=== PATIENT | female | born 1970 | race Caucasian/White ===

== ENCOUNTER 2019-06-23 05:42 | Inpatient (IN) | payer OTHER ==
[2019-06-23] MEDS: DEXAMETHASONE 1 MG TAB PO (06:22)
[2019-06-23] MEDS: GABAPENTIN 300 MG CAP PO ×2 (06:22→20:54)
[2019-06-23] MEDS ORDERED: BUPIVACAINE 0.5% (SDV) 30 ML, morphine SULFATE (PF) 8 MG, EPINEPHrine 0.3 MG, KETOROLAC... IRR (06:30)
[2019-06-23] MEDS ORDERED: CA CHLORIDE (GM) 10% 10 ML INJ (06:38)
[2019-06-23] MEDS: POLYMYXIN/BACITRACIN 1L IRRIG (06:38)
[2019-06-23] MEDS ORDERED: THROMBIN 5000 UNIT (RECOTHROM) VIAL (06:38)
[2019-06-23] MEDS ORDERED: GLYCOPYRROLATE 0.4 MG INJ (06:44)
[2019-06-23] MEDS ORDERED: CEFAZOLIN 1 GM INJ (06:44)
[2019-06-23] MEDS ORDERED: NEOSTIGMINE 3 MG/3 ML SYRINGE (06:44)
[2019-06-23] MEDS ORDERED: PROPOFOL 20 ML (06:44)
[2019-06-23] MEDS ORDERED: ROCURONIUM 50 MG INJ (06:44)
[2019-06-23] MEDS ORDERED: DEXAMETHASONE 4 MG/ML 5 ML INJ (06:44)
[2019-06-23] MEDS ORDERED: MIDAZOLAM 1 MG/ML 2 ML INJ (06:44)
[2019-06-23] MEDS ORDERED: ONDANSETRON 4 MG INJ (06:44)
[2019-06-23] MEDS ORDERED: FENTAnyl 50 MCG/ML VIAL (06:44)
[2019-06-23] MEDS ORDERED: morphine SULFATE/PF (10 MG/10 ML) INJ (06:46)
[2019-06-23] MEDS ORDERED: ALBUTEROL 0.083% (NEB) 2.5 MG/3 ML AMP HHN (07:00)
[2019-06-23] MEDS ORDERED: LABETALOL HCL 20MG INJ IV (07:00)
[2019-06-23] MEDS ORDERED: HYDROmorphONE 0.5 MG/0.5 ML SYG IV (07:00)
[2019-06-23] MEDS ORDERED: FENTAnyl 50 MCG/ML VIAL IV ×2 (07:00)
[2019-06-23] MEDS ORDERED: ONDANSETRON 4 MG INJ IV ×2 (07:00→09:00)
[2019-06-23] MEDS ORDERED: DIPHENHYDRAMINE 50 MG INJ IV ×3 (07:00→09:00)
[2019-06-23] MEDS ORDERED: NALOXONE (0.4 MG/ML) INJ IV (07:00)
[2019-06-23] MEDS ORDERED: HYDROmorphONE 1 MG/5 ML IV SYRINGE IV (07:00)
[2019-06-23] MEDS ORDERED: NALBUPHINE HCL (10 MG/1 ML) INJ IV (07:00)
[2019-06-23] MEDS ORDERED: IPRATROPIUM (NEB) 0.5 MG/2.5 ML AMP HHN (07:00)
[2019-06-23] MEDS ORDERED: TRIMETHOBENZAMIDE 100 MG/ML VIAL IM ×2 (07:00)
[2019-06-23] MEDS ORDERED: hydrALAzine 20 MG INJ IV (07:00)
[2019-06-23] MEDS ORDERED: TRANEXAMIC ACID 1GM/100ML(PMX) 100 ML (07:05)
[2019-06-23] MEDS ORDERED: SUGAMMADEX SODIUM 200 MG/2 ML VIAL IV (08:45)
[2019-06-23] MEDS ORDERED: ZOLPIDEM 5 MG TAB PO (09:00)
[2019-06-23] MEDS ORDERED: MAGNESIUM HYDROXIDE 30ML CUP PO (09:00)
[2019-06-23] MEDS ORDERED: NACL 0.9% 3 ML SYG IV (09:00)
[2019-06-23] MEDS: ONDANSETRON 4 MG INJ IV (09:15)
[2019-06-23] MEDS: HYDROmorphONE 1 MG/5 ML IV SYRINGE IV ×3 (09:15→09:33)
[2019-06-23] MEDS: MIDAZOLAM 1 MG/ML 2 ML INJ IV (09:22)
[2019-06-23] MEDS: FENTAnyl 50 MCG/ML VIAL IV ×2 (09:29→13:03)
[2019-06-23 09:33] LABS: ADD MAN DIFF? NO
[2019-06-23 09:34] LABS: WHITE BLOOD COUNT 9.2 10^3/ul (4.8-10.8)
[2019-06-23 09:34] LABS: BASOPHILS % 0.2 % (0.0-2.0); EOSINOPHILS % 0.2 % (0.0-7.0); HEMATOCRIT 34.7 % (37.0-47.0); HEMOGLOBIN 11.2 g/dl (12.0-16.0); LYMPHOCYTES # 1.9 10^3/ul (0.8-2.9); LYMPHOCYTES % 20.6 % (15.0-51.0); MEAN CORPUSCULAR HEMOGLOBIN 30.9 pg (29.0-33.0); MEAN CORPUSCULAR HGB CONC 32.3 g/dl (32.0-37.0); MEAN CORPUSCULAR VOLUME 95.9 fl (82.0-101.0); MEAN PLATELET VOLUME 9.8 fl (7.4-10.4); MONOCYTE # 0.2 10^3/ul (0.3-0.9); MONOCYTES % 2.2 % (0.0-11.0); NEUTROPHILS % 76.3 % (39.0-77.0); PLATELET COUNT 210 10^3/UL (140-415); RED BLOOD COUNT 3.62 10^6/ul (4.20-5.40)
[2019-06-23] MEDS: MEPERIDINE 25 MG INJ IV (09:34)
[2019-06-23] MEDS: EPHEDrine 25 MG/5 ML SYG IV (10:17)
[2019-06-23] MEDS: ACETAMINOPHEN 1000MG/100ML IV 100 ML IVPB ×2 (11:46→17:32)
[2019-06-23] MEDS: DEXAMETHASONE 2 MG TAB PO ×3 (11:47→23:35)
[2019-06-23] MEDS: LACTATED RINGER'S 1,000 ML IV ×2 (13:00→20:57)
[2019-06-23] MEDS: SOD CHLORIDE 0.9% 100 ML, TRANEXAMIC ACID 3,000 MG IRR (13:01)
[2019-06-23] MEDS: CEFAZOLIN 2 GM/50 ML (PMX) 50 ML IVPB (13:01)
[2019-06-23] MEDS: TRANEXAMIC ACID 1GM/100ML(PMX) 100 ML IVPB (13:01)
[2019-06-23] MEDS: CEFAZOLIN 1 GM/50 ML (PMX) 50 ML IVPB ×2 (15:10→23:35)
[2019-06-23] MEDS: oxyCODONE 5 MG TAB PO ×2 (17:34→20:56)
[2019-06-23] MEDS: SENNA/DOCUSATE NA (8.6MG/50MG) TAB PO (20:55)
[2019-06-23] MEDS: HYDROmorphONE 0.5 MG/0.5 ML SYG IV (23:40)
[2019-06-24] MEDS: ACETAMINOPHEN 1000MG/100ML IV 100 ML IVPB (02:49)
[2019-06-24 05:02] LABS: ADD MAN DIFF? NO
[2019-06-24 05:07] LABS: WHITE BLOOD COUNT 15.3 10^3/ul (4.8-10.8)
[2019-06-24 05:07] LABS: BASOPHILS % 0.1 % (0.0-2.0); HEMATOCRIT 30.2 % (37.0-47.0); HEMOGLOBIN 9.8 g/dl (12.0-16.0); LYMPHOCYTES # 1.2 10^3/ul (0.8-2.9); LYMPHOCYTES % 7.5 % (15.0-51.0); MEAN CORPUSCULAR HEMOGLOBIN 31.1 pg (29.0-33.0); MEAN CORPUSCULAR HGB CONC 32.5 g/dl (32.0-37.0); MEAN CORPUSCULAR VOLUME 95.9 fl (82.0-101.0); MEAN PLATELET VOLUME 10.6 fl (7.4-10.4); MONOCYTES % 6.5 % (0.0-11.0); NEUTROPHILS % 85.4 % (39.0-77.0); PLATELET COUNT 211 10^3/UL (140-415); RED BLOOD COUNT 3.15 10^6/ul (4.20-5.40); RED CELL DISTRIBUTION WIDTH 12.2 % (11.5-14.5)
[2019-06-24] MEDS: DEXAMETHASONE 2 MG TAB PO (06:38)
[2019-06-24] MEDS: oxyCODONE 5 MG TAB PO ×3 (06:39→17:57)
[2019-06-24] MEDS: CEFAZOLIN 1 GM/50 ML (PMX) 50 ML IVPB (06:40)
[2019-06-24] MEDS: LACTATED RINGER'S 1,000 ML IV ×2 (06:41→16:00)
[2019-06-24] MEDS: SENNA/DOCUSATE NA (8.6MG/50MG) TAB PO ×2 (09:10→21:13)
[2019-06-24] MEDS: ASPIRIN (EC) 325 MG TAB PO (09:11)
[2019-06-24] MEDS: HYDROmorphONE 1 MG/ML SYG IV ×2 (09:54→15:17)
[2019-06-24] MEDS: GABAPENTIN 300 MG CAP PO (21:13)
[2019-06-25] MEDS: oxyCODONE 5 MG TAB PO ×4 (01:54→15:22)
[2019-06-25] MEDS: LACTATED RINGER'S 1,000 ML IV (02:00)
[2019-06-25 04:54] LABS: ADD MAN DIFF? NO
[2019-06-25 05:01] LABS: BASOPHILS % 0.2 % (0.0-2.0); EOSINOPHILS % 0.2 % (0.0-7.0); HEMOGLOBIN 9.2 g/dl (12.0-16.0); LYMPHOCYTES # 2.5 10^3/ul (0.8-2.9); LYMPHOCYTES % 24.3 % (15.0-51.0); MEAN CORPUSCULAR HEMOGLOBIN 30.8 pg (29.0-33.0); MEAN CORPUSCULAR HGB CONC 31.7 g/dl (32.0-37.0); MEAN PLATELET VOLUME 10.6 fl (7.4-10.4); MONOCYTE # 0.9 10^3/ul (0.3-0.9); MONOCYTES % 8.9 % (0.0-11.0); NEUTROPHIL # 6.9 10^3/ul (1.6-7.5); NEUTROPHILS % 65.9 % (39.0-77.0); PLATELET COUNT 198 10^3/UL (140-415); RED BLOOD COUNT 2.99 10^6/ul (4.20-5.40); RED CELL DISTRIBUTION WIDTH 12.6 % (11.5-14.5)
[2019-06-25 05:01] LABS: WHITE BLOOD COUNT 10.4 10^3/ul (4.8-10.8)
[2019-06-25] MEDS: ASPIRIN (EC) 325 MG TAB PO (09:41)
[2019-06-25] MEDS: SENNA/DOCUSATE NA (8.6MG/50MG) TAB PO (09:41)
[2019-06-25] MEDS ORDERED: MAGNESIUM HYDROXIDE 30ML CUP PO (21:00)
== END 2019-06-25 15:40 | disposition home or self-care (01) | DRG 470 ==
LOC: REC 05:42 → MS1 10:49
PROVIDERS: Orthopaedic Surgery
PROC: 0SR904A Replacement of Right Hip Joint with Ceramic on Polyethylene Synthetic Substitute, Uncemented, Open Approach (ICD-10-PCS; principal; 2019-06-23 07:00)
DX: M13.851 Other specified arthritis, right hip (principal); I10 Essential (primary) hypertension; E11.9 Type 2 diabetes mellitus without complications; F17.200 Nicotine dependence, unspecified, uncomplicated; Z86.73 Personal history of transient ischemic attack (TIA), and cerebral infarction without residual deficits; E66.9 Obesity, unspecified; Z68.33 Body mass index [BMI] 33.0-33.9, adult
CPT/HCPCS: 72170; 73530; 85025; 86999; 87086; 88304; 88311; 97116; 97162; 97530